=== PATIENT | female | born 1970 | race Caucasian/White ===

== ENCOUNTER 2019-08-06 21:04 | Emergency (ER) | payer SELFPAY ==
[~2019-08-06] VITALS: Ht 162.6 cm; Wt 72.7 kg
[2019-08-06] MEDS ORDERED: GLIP10TA PO (21:23)
[2019-08-06] MEDS ORDERED: METF500T13 PO (21:23)
[2019-08-06] MEDS ORDERED: TRIL600T PO (21:24)
--- NOTE | 2019-08-06 22:16 | REPVR ---
PROCEDURE INFORMATION: Exam: CT Head Without Contrast Exam date and time: 08/06/2019 9:44 PM Age: 49 years old Clinical indication: Injury or trauma; Fall; Initial encounter; Blunt trauma (contusions or hematomas); Additional info: Fall/occipital head inj/dizziness TECHNIQUE: Imaging protocol: Computed tomography of the head without contrast. Radiation optimization: All CT scans at this facility use at least one of these dose optimization techniques: automated exposure control; mA and/or kV adjustment per patient size (includes targeted exams where dose is matched to clinical indication); or iterative reconstruction. COMPARISON: No relevant prior studies available. FINDINGS: Brain: Normal. No hemorrhage. Unremarkable white matter. No mass effect. Ventricles: Normal. No ventriculomegaly. Bones/joints: Unremarkable. No acute fracture. Sinuses: Visualized sinuses are unremarkable. No fluid levels. Mastoid air cells: Visualized mastoid air cells are well aerated. Soft tissues: Unremarkable. IMPRESSION: No acute intracranial abnormality. Electronically signed by: Chano Serna On 08/06/2019 22:15:45 PM
--- NOTE | 2019-08-06 22:20 | REPVR ---
PROCEDURE INFORMATION: Exam: CT Cervical Spine Without Contrast Exam date and time: 08/06/2019 9:44 PM Age: 49 years old Clinical indication: Injury or trauma; Fall; Initial encounter; Blunt trauma; Additional info: Fall/occipital head inj/dizziness TECHNIQUE: Imaging protocol: Computed tomography images of the cervical spine without contrast. Radiation optimization: All CT scans at this facility use at least one of these dose optimization techniques: automated exposure control; mA and/or kV adjustment per patient size (includes targeted exams where dose is matched to clinical indication); or iterative reconstruction. COMPARISON: No relevant prior studies available. FINDINGS: Vertebrae: Reversal of normal cervical lordosis. Discs/Spinal canal/Neural foramina: There are mild degenerative changes demonstrated in the atlantoaxial joint with osteophytes and joint space narrowing. The transverse ligament is normal. Disc space narrowing from C3-C4 to C5-C6. Moderate to severe bilateral foraminal stenosis at C3, moderate to severe foraminal stenosis bilaterally at C4, moderate to severe bilateral foraminal stenosis at C5 all secondary to uncinate joint hypertrophic changes. Disc osteophyte complexes from C3-C4 the C5-C6 effaces the ventral subarachnoid space to varying degrees without significant cord impingement. Soft tissues: Unremarkable. Lungs: Lung apices are normal. IMPRESSION: Degenerative spondylosis. No acute findings. Electronically signed by: Chano Serna On 08/06/2019 22:20:28 PM
--- NOTE | 2019-08-06 22:22 | REPVR ---
PROCEDURE INFORMATION: Exam: CT Thoracic Spine Without Contrast Exam date and time: 08/06/2019 9:44 PM Age: 49 years old Clinical indication: Injury or trauma; Fall; Initial encounter; Blunt trauma (contusions or hematomas); Additional info: Fall/occipital head inj/dizziness TECHNIQUE: Imaging protocol: Computed tomography images of the thoracic spine without contrast. Radiation optimization: All CT scans at this facility use at least one of these dose optimization techniques: automated exposure control; mA and/or kV adjustment per patient size (includes targeted exams where dose is matched to clinical indication); or iterative reconstruction. COMPARISON: No relevant prior studies available. FINDINGS: Vertebrae: No acute fracture. Normal alignment. Discs/Spinal canal/Neural foramina: The spine demonstrates mild degenerative changes. Soft tissues: Unremarkable. IMPRESSION: Mild degenerative spondylosis. No acute findings. Electronically signed by: Chano Serna On 08/06/2019 22:21:49 PM
[2019-08-06] MEDS ORDERED: LIDOCAINE 5% OINT 30 GM TOP STA (22:59)
[2019-08-06] MEDS ORDERED: METHOCARBAMOL 750 MG TAB PO ONE (23:00)
[2019-08-06] MEDS ORDERED: KETOROLAC 60 MG/2 ML VIAL (J1885) IM ONE (23:00)
[2019-08-06] MEDS ORDERED: LIDOCAINE 4% CREAM 5GM (LMX4) TOP STA (23:04)
[2019-08-06] MEDS ORDERED: ROBA750T4 PO (23:29)
[2019-08-06] MEDS ORDERED: LIDO1CRE2 TOP (23:29)
[2019-08-06] MEDS ORDERED: NAPR-837 PO (23:29)
[2019-08-06 23:42] VITALS: BP 138/84
== END 2019-08-06 23:43 | disposition home or self-care (01) ==
LOC: M ED 21:04
DX: S30.0XXA Contusion of lower back and pelvis, initial encounter (principal); S09.90XA Unspecified injury of head, initial encounter; W00.0XXA Fall on same level due to ice and snow, initial encounter; Y92.89 Other specified places as the place of occurrence of the external cause; Y93.01 Activity, walking, marching and hiking; M47.812 Spondylosis without myelopathy or radiculopathy, cervical region; E11.9 Type 2 diabetes mellitus without complications; K21.9 Gastro-esophageal reflux disease without esophagitis; Z79.84 Long term (current) use of oral hypoglycemic drugs
CPT/HCPCS: 70450; 72125; 72128; 96372; 99283; J1885

== ENCOUNTER 2022-02-01 14:14 | Emergency (ER) | payer OTHER ==
[~2022-02-01] VITALS: Ht 162.6 cm; Wt 69.3 kg
[~2022-02-01 14:14] MED LIST: GLIP10TA PO; LIDO1CRE2 TOP; METF500T13 PO; NAPR-837 PO; ROBA750T4 PO; TRIL600T PO
[2022-02-01] MEDS ORDERED: MAGN400T2 (15:43)
[2022-02-01] MEDS ORDERED: TIZA2TA (15:43)
[2022-02-01] MEDS ORDERED: TRAZ-257 (15:43)
[2022-02-01] MEDS ORDERED: MELO15TA28 (15:43)
[2022-02-01] MEDS ORDERED: ZOLO100T (15:43)
[2022-02-01] MEDS ORDERED: PREG75CA2 (15:43)
[2022-02-01] MEDS ORDERED: LIDOCAINE 4% CREAM 5GM (LMX4) TOP ONE (16:20)
[2022-02-01] MEDS ORDERED: PREGABALIN 75 MG CAP(LYRICA) PO ONE (16:20)
[2022-02-01] MEDS ORDERED: LYRI75CA PO (18:26)
[2022-02-01 18:51] VITALS: BP 135/74
== END 2022-02-01 18:55 | disposition home or self-care (01) ==
LOC: M ED 14:14
DX: S59.902A Unspecified injury of left elbow, initial encounter (principal); M25.422 Effusion, left elbow; E11.9 Type 2 diabetes mellitus without complications; Z79.84 Long term (current) use of oral hypoglycemic drugs; X50.0XXA Overexertion from strenuous movement or load, initial encounter